=== PATIENT | female | born 1980 | race Caucasian/White ===

== ENCOUNTER → 2017-06-02 | Outpatient (CLI) | payer BC ==
--- NOTE | ~2017-06-02 | MR60 ---
[facility] A Service of [facility] RADIOLOGY TEXT RESULTS PATIENT: WILLIAM GRANT LOCATION: [facility] : 76 UNIT #: [id number] AGE: [address]: Abhinav Ibarra MD SEX: F ORDER DR: [id number] [address] [address] [id number] O MR#: [id number] Acc #: [id number] NAME: WILLIAM GRANT : 1980 SEX: F STUDY DATE/TIME: 06/02/2017 13:46 UNIT: [facility] ROOM: STUDY DESCRIPTION: Foot Wo Contrast Lt Attending Physician: Abhinav Ibarra M.D. Referring Physician: Abhinav Ibarra M.D. Ordering Physician: Abhinav Ibarra M.D. Primary Care Physician: Abhinav Ibarra M.D. MRI CENTER REPORT This report is preliminary unless electronic signature is present. EXAM MRI of the left foot without contrast. HISTORY 36-year-old female stepped awkwardly on foot yesterday, now can barely walk at all. Past history of bunionectomy. Patient in a boot. COMPARISON Left foot films, 08/16/2013. TECHNIQUE Multiplanar, multiecho imaging was performed of the left mid-foot utilizing a high-field magnet dedicated protocol. FINDINGS Post-surgical changes are noted consistent with prior bunionectomy. Marrow changes and deformity of the distal first metatarsal compatible with prior osteotomy. No significant arthropathy at the first MTP joint. The sesamoids are unremarkable. Minimal joint fluid. The remainder of the metatarsals appear normal. MTP joints and tarsal metatarsal joints unremarkable. Intrinsic foot musculature appears normal. There is subchondral edema along the central weight-bearing aspect of the first metatarsal head could correspond to an area of developing chondromalacia. Visualized plantar fascia and extensor and flexor tendons unremarkable. IMPRESSION 1. Postsurgical changes, first metatarsal, related to bunionectomy and first metatarsal osteotomy. 2. 5 mm focus of subchondral edema central and posterior weight-bearing first metatarsal head could reflect an area of chondromalacia. No significant arthropathy at the first MTP joint. No evidence of stress fracture or occult fracture. [facility] A Service of [facility] RADIOLOGY TEXT RESULTS PATIENT: WILLIAM GRANT LOCATION: [facility] : 76 UNIT #: [id number] AGE: [address]: Abhinav Ibarra MD SEX: F ORDER DR: NOTE Findings were called and discussed with Dr. Ibarra. The findings at the first MTP joint could represent a small amount of synovitis and chondromalacia, possibly representing early degenerative changes at the first MTP joint, though overall, no significant arthropathy seen at the MTP joint. Clearly, no definite acute abnormality is seen. Dictated by... Martha Chino M.D. THIS IS AN ELECTRONICALLY VERIFIED REPORT Martha Chino M.D. at 06/06/2017 9:30 AM Krissy TD: 06/02/2017 17:38 JOB #: [id number] MRI CENTER REPORT Page 1 of 1
== END | disposition home or self-care (01) ==
LOC: SMRI 13:25
DX: M25.572 Pain in left ankle and joints of left foot (principal); R60.0 Localized edema; Z98.890 Other specified postprocedural states
CPT/HCPCS: 73718